=== PATIENT | female | born 1955 | race Caucasian/White ===

== ENCOUNTER 2017-03-04 14:45 | Outpatient (RCR) | payer OTHER | END 2017-03-31 | LOC: M PT 14:45 | DX: Z51.89 Encounter for other specified aftercare (principal); M75.32 Calcific tendinitis of left shoulder ==

== ENCOUNTER 2017-04-07 11:34 | Outpatient (RCR) | payer OTHER | END 2017-04-28 | LOC: M PT 11:34 | DX: Z51.89 Encounter for other specified aftercare (principal); M71.9 Bursopathy, unspecified ==

== ENCOUNTER → 2018-01-28 | Outpatient (REF) | payer OTHER ==
[2018-01-28 17:50] LABS: TOTAL PROTEIN 8.5 GM/DL (6.4-8.2)
[2018-02-01 11:36] LABS: ALBUMIN % 50.8 % (55.8-66.1)
[2018-02-01 11:37] LABS: ALBUMIN 4.32 GM/DL (3.29-5.55); ALPHA-1-GLOBULIN % 3.6 % (2.9-4.9); ALPHA-1-GLOBULINS 0.31 GM/DL (0.17-0.41); ALPHA-2-GLOBULINS 0.92 GM/DL (0.42-0.99); ALPHA-2-GLOBULINS % 10.8 % (7.1-11.8); BETA-1-GLOBULINS 0.57 GM/DL (0.28-0.60); BETA-1-GLOBULINS % 6.7 % (4.7-7.2); BETA-2-GLOBULINS 0.56 GM/DL (0.19-0.55); BETA-2-GLOBULINS % 6.6 % (3.2-6.5); GAMMA GLOBULIN % 21.5 % (11.1-18.8); GAMMA GLOBULINS 1.83 GM/DL (0.65-1.58)
== END ==
LOC: M LAB REF 16:10
DX: D89.0 Polyclonal hypergammaglobulinemia (principal)
CPT/HCPCS: 84165

== ENCOUNTER → 2018-11-22 | Outpatient (REF) | payer OTHER ==
[2018-11-23 17:40] LABS: TOTAL PROTEIN 8.1 GM/DL (6.4-8.2)
[2018-11-24 11:33] LABS: ALBUMIN 4.21 GM/DL (3.29-5.55); ALPHA-1-GLOBULIN % 3.6 % (2.9-4.9); ALPHA-1-GLOBULINS 0.29 GM/DL (0.17-0.41); ALPHA-2-GLOBULINS 0.81 GM/DL (0.42-0.99); BETA-1-GLOBULINS 0.55 GM/DL (0.28-0.60); BETA-1-GLOBULINS % 6.8 % (4.7-7.2); BETA-2-GLOBULINS 0.53 GM/DL (0.19-0.55); BETA-2-GLOBULINS % 6.5 % (3.2-6.5); GAMMA GLOBULIN % 21.1 % (11.1-18.8); GAMMA GLOBULINS 1.71 GM/DL (0.65-1.58)
== END ==
LOC: M LAB REF 17:07
PROVIDERS: ATTEND Internal Medicine
DX: D89.0 Polyclonal hypergammaglobulinemia (principal)

== ENCOUNTER → 2019-01-24 | Outpatient (REF) | payer OTHER ==
[2019-01-24 18:38] LABS: C REACTIVE PROTEIN QUANTITATIV 0.34 MG/DL (0.00-0.30); IRON (FE) 79 UG/DL (50-170); PERCENT SATURATION 24.2 % (13.2-45.0); PHOSPHORUS LEVEL 4.3 MG/DL (2.5-4.9); RHEUMATOID FACTOR QUANT < 10.0 IU/ML (<15.0); TOTAL IRON BINDING CAPACITY 327 UG/DL (250-450)
[2019-01-28 00:07] LABS: ANA (HEP2) Negative (.)
== END ==
LOC: M LAB REF 17:18
PROVIDERS: ATTEND Internal Medicine
DX: R79.82 Elevated C-reactive protein (CRP) (principal); M25.50 Pain in unspecified joint

== ENCOUNTER → 2019-03-14 | Outpatient (CLI) | payer OTHER | LOC: M PT 14:06 | PROVIDERS: ATTEND Orthopaedic Surgery | DX: Z01.818 Encounter for other preprocedural examination (principal); M16.12 Unilateral primary osteoarthritis, left hip ==

== ENCOUNTER 2019-04-25 13:45 | Outpatient (RCR) | payer OTHER | END 2019-04-29 | LOC: M PT 13:45 | PROVIDERS: ATTEND Orthopaedic Surgery | DX: Z47.1 Aftercare following joint replacement surgery (principal); Z96.642 Presence of left artificial hip joint ==

== ENCOUNTER 2019-05-12 08:36 | Outpatient (RCR) | payer OTHER | END 2019-05-30 | LOC: M PT 08:36 | PROVIDERS: ATTEND Orthopaedic Surgery | DX: Z47.89 Encounter for other orthopedic aftercare (principal); Z96.642 Presence of left artificial hip joint ==

== ENCOUNTER → 2019-09-29 | Outpatient (RCR) | payer OTHER | LOC: M PT 08-30 09:41 | PROVIDERS: ATTEND Orthopaedic Surgery Orthopaedic Surgery of the Spine | DX: M54.5 Low back pain (principal); M48.00 Spinal stenosis, site unspecified ==

== ENCOUNTER → 2020-01-30 | Outpatient (CLI) | payer SELFPAY | LOC: M LABSMTC 12:56 | PROVIDERS: ATTEND Pediatrics | DX: Z20.828 Contact with and (suspected) exposure to other viral communicable diseases (principal) ==

== ENCOUNTER → 2020-02-15 | Outpatient (CLI) | payer SELFPAY ==
[2020-02-15 16:42] LABS: FOLATE 18.3 NG/ML
[2020-02-23 03:07] LABS: CERULOPLASMIN 25.3 mg/dL (19.0-39.0); VITAMIN B1 LEVEL WHOLE BLOOD 147.6 nmol/L (66.5-200.0); VITAMIN B6,PYRIDOXAL PHOSPHATE 8.6 ug/L (2.0-32.8); VITAMIN E(ALPHA TOCOPHEROL) 14.5 mg/L (9.0-29.0); VITAMIN E(GAMMA TOCOPHEROL) 0.8 mg/L (0.5-4.9)
== END ==
LOC: M PLALAB 14:19
PROVIDERS: ATTEND Psychiatry & Neurology Neurology
DX: R20.2 Paresthesia of skin (principal); R53.1 Weakness; E61.0 Copper deficiency; E53.8 Deficiency of other specified B group vitamins

== ENCOUNTER → 2020-04-01 | Outpatient (REF) | payer OTHER ==
[2020-04-01 13:57] LABS: APPEARANCE, URINE CLEAR (CLEAR); BACTERIA, URINE AUTO NEGATIVE (NEGATIVE); BILIRUBIN, URINE AUTO NEGATIVE (NEGATIVE); BLOOD, URINE BLOOD NEGATIVE (NEGATIVE); COLOR, URINE YELLOW (YELLOW); GLUCOSE, URINE (UA) AUTO NEGATIVE (NEGATIVE); KETONE, URINE AUTO NEGATIVE (NEGATIVE); LEUKOCYTE ESTERASE, URINE AUTO TRACE (NEGATIVE); MUCUS, URINE SMALL (NEGATIVE); NITRITE, URINE AUTO POSITIVE (NEGATIVE); PROTEIN, URINE AUTO NEGATIVE (NEGATIVE); RBC, URINE AUTO 1 /HPF (0-3); SPECIFIC GRAVITY URINE AUTO 1.014 (1.002-1.035); SQUAMOUS EPITHELIAL CELL UR AU 0 /HPF (0-6); UROBILINOGEN, URINE AUTO 0.2 mg/dL (0.0-2.0); WBC, URINE AUTO 1 /HPF (0-3)
[2020-04-01 14:22] LABS: INR 1.03; PROTHROMBIN TIME 13.7 SECONDS (12.5-14.3)
[2020-04-01 14:23] LABS: PARTIAL THROMBOPLASTIN TIME 32.5 SECONDS (24.2-38.5)
[2020-04-01 14:46] LABS: PERCENT SATURATION 21.1 % (13.2-45.0)
== END ==
LOC: M LAB REF 12:32
PROVIDERS: ATTEND Internal Medicine
DX: Z01.818 Encounter for other preprocedural examination (principal); M25.559 Pain in unspecified hip; M16.11 Unilateral primary osteoarthritis, right hip

== ENCOUNTER → 2020-10-01 | Outpatient (CLI) | payer OTHER | LOC: M WHC 13:52 | PROVIDERS: ATTEND Internal Medicine | DX: M85.80 Other specified disorders of bone density and structure, unspecified site (principal) ==

== ENCOUNTER → 2020-10-22 | Outpatient (CLI) | payer OTHER ==
--- NOTE | 2020-10-23 10:05 | REPVR ---
PROCEDURE INFORMATION: Exam: MR Lumbar Spine Without Contrast Exam date and time: 10/22/2020 1:42 PM Age: 65 years old Clinical indication: Low back pain; Additional info: Lbp TECHNIQUE: Imaging protocol: Multiplanar magnetic resonance images of the lumbar spine without intravenous contrast. COMPARISON: No relevant prior studies available. FINDINGS: Vertebrae: There is 4 mm of grade 1 retrolisthesis of L2 with respect to L3. There is 5 mm of grade 1 anterolisthesis of L4 with respect to L5. Normal vertebral body alignment is otherwise preserved. Vertebral body heights are within normal limits. There is moderate to severe intervertebral disc space loss at L2/3 and L4/5. Spinal cord: The conus medullaris terminates at T12/L1. The patient has a congenitally narrowed spinal canal. L1-L2: There is shallow disc bulging. There is mild facet and ligamentous hypertrophy. The spinal canal and neural foramina are patent. L2-L3: There is diffuse disc bulging/uncovering related to listhesis. There is moderate facet and ligamentous hypertrophy. There is moderate canal stenosis. There is moderate right and mild left neural foraminal narrowing. L3-L4: There is diffuse disc bulging. There is moderate facet and ligamentous hypertrophy. There is moderate canal stenosis. There is moderate right and mild left neural foraminal narrowing. L4-L5: There is disc bulging/uncovering related to listhesis. There is severe facet and ligamentous hypertrophy. There is moderate canal stenosis. There is [id number] right and moderate to severe left neural foraminal narrowing. L5-S1: There is shallow disc bulging. There is moderate facet hypertrophy. There is mild right neural foraminal narrowing. Soft tissues: Unremarkable. IMPRESSION: Degenerative disc disease and spondylosis. Changes contribute to multilevel moderate acquired canal stenosis. There is multilevel neural foraminal narrowing, most pronounced at L4/5, where it is [id number] on the right and moderate to severe on the left. Electronically signed by: Tianna Perez On 10/23/2020 10:05:20 AM
== END ==
LOC: M PLAIMG 12:58
PROVIDERS: ATTEND Internal Medicine
DX: R93.7 Abnormal findings on diagnostic imaging of other parts of musculoskeletal system (principal); M54.5 Low back pain

== ENCOUNTER → 2020-11-19 | Outpatient (CLI) | payer OTHER ==
[2020-11-19 13:40] LABS: HEMATOCRIT 37.7 % (36.0-47.0); HEMOGLOBIN 12.6 g/dl (12.0-15.5); MEAN CORPUSCULAR HEMOGLOBIN 29.5 pg (27.0-33.0); MEAN CORPUSCULAR HGB CONC 33.4 g/dl (32.0-36.5); MEAN CORPUSCULAR VOLUME 88.3 fl (80.0-96.0); PLATELET COUNT, AUTOMATED 224 10^3/uL (150-450); RED BLOOD COUNT 4.27 10^6/uL (4.00-5.40); WHITE BLOOD COUNT 6.2 10^3/uL (4.0-10.0)
[2020-11-19 14:08] LABS: ALBUMIN 3.5 GM/DL (3.2-5.2); ALT/SGPT 35 U/L (12-78); BILIRUBIN,TOTAL 0.5 MG/DL (0.2-1.0); BLOOD UREA NITROGEN 17 MG/DL (7-18); C REACTIVE PROTEIN QUANTITATIV 0.39 MG/DL (0.00-0.30); CALCIUM LEVEL 8.9 MG/DL (8.8-10.2); CARBON DIOXIDE LEVEL 29 MEQ/L (21-32); CHLORIDE LEVEL 106 MEQ/L (98-107); CREATININE FOR GFR 0.94 MG/DL (0.55-1.30); GLOMERULAR FILTRATION RATE > 60.0 (>45); GLUCOSE, FASTING 179 MG/DL (70-100); POTASSIUM SERUM 4.7 MEQ/L (3.5-5.1); SODIUM LEVEL 139 MEQ/L (136-145); TOTAL PROTEIN 7.4 GM/DL (6.4-8.2)
[2020-11-19 14:17] LABS: ERYTHROCYTE SEDIMENTATION RATE 27 mm/hr (0-30)
== END ==
LOC: M PLALAB 10:32
PROVIDERS: ATTEND Physician Assistant
DX: M25.551 Pain in right hip (principal); M25.552 Pain in left hip

== ENCOUNTER → 2020-12-10 | Outpatient (REF) | payer OTHER ==
[2020-12-10 18:01] LABS: BACTERIA, URINE AUTO NEGATIVE (NEGATIVE); MUCUS, URINE SMALL (NEGATIVE); RBC, URINE AUTO 0 /HPF (0-3); SQUAMOUS EPITHELIAL CELL UR AU 0 /HPF (0-6); WBC, URINE AUTO 3 /HPF (0-3)
== END ==
LOC: M SMT 16:58
PROVIDERS: ATTEND Specialist
DX: N39.46 Mixed incontinence (principal)

== ENCOUNTER → 2020-12-23 | Outpatient (REF) | payer OTHER ==
[2020-12-23 17:21] LABS: APPEARANCE, URINE CLEAR (CLEAR); BACTERIA, URINE AUTO NEGATIVE (NEGATIVE); BILIRUBIN, URINE AUTO NEGATIVE (NEGATIVE); BLOOD, URINE BLOOD NEGATIVE (NEGATIVE); COLOR, URINE YELLOW (YELLOW); GLUCOSE, URINE (UA) AUTO 2+ mg/dL (NEGATIVE); KETONE, URINE AUTO NEGATIVE (NEGATIVE); LEUKOCYTE ESTERASE, URINE AUTO NEGATIVE (NEGATIVE); NITRITE, URINE AUTO NEGATIVE (NEGATIVE); PROTEIN, URINE AUTO NEGATIVE (NEGATIVE); RBC, URINE AUTO 0 /HPF (0-3); SPECIFIC GRAVITY URINE AUTO 1.019 (1.002-1.035); SQUAMOUS EPITHELIAL CELL UR AU 0 /HPF (0-6); UROBILINOGEN, URINE AUTO 0.2 mg/dL (0.0-2.0); WBC, URINE AUTO 1 /HPF (0-3)
== END ==
LOC: M LAB REF 16:46
PROVIDERS: ATTEND Internal Medicine
DX: Z01.818 Encounter for other preprocedural examination (principal)

== ENCOUNTER → 2021-03-17 | Outpatient (REF) | payer BC | LOC: M LAB REF 11:18 | PROVIDERS: ATTEND Internal Medicine | DX: R74.01 Elevation of levels of liver transaminase levels (principal) ==

== ENCOUNTER → 2021-04-02 | Outpatient (CLI) | payer MEDICARE, BC | LOC: M RAD 13:45 | PROVIDERS: ATTEND Internal Medicine | DX: I65.29 Occlusion and stenosis of unspecified carotid artery (principal) ==

== ENCOUNTER 2022-10-03 16:21 | Emergency (ER) | payer MEDICARE, BC ==
[~2022-10-03] VITALS: Ht 170.2 cm; Wt 83.2 kg
[2022-10-03] MEDS ORDERED: PARO40TA2 (16:36)
[2022-10-03] MEDS ORDERED: BUPR300T92 (16:36)
[2022-10-03] MEDS ORDERED: LANTINJ4 (16:36)
[2022-10-03] MEDS ORDERED: NOVOINJ3 (16:36)
[2022-10-03] MEDS ORDERED: ATOR1TAB21 (16:36)
[2022-10-03] MEDS ORDERED: TRUL0.5I (16:36)
[2022-10-03] MEDS ORDERED: METO1TAB32 (16:36)
[2022-10-03] MEDS ORDERED: FLEET ENEMA PR STA (18:39)
[2022-10-03] MEDS ORDERED: DIBUCAINE 1% OINTMENT 30GM TOP STA (20:02)
[2022-10-03 20:48] VITALS: BP 117/71; TEMP 97.8; O2SAT 98
== END 2022-10-03 20:38 | disposition home or self-care (01) ==
LOC: M ED 16:21
DX: K56.41 Fecal impaction (principal); E11.9 Type 2 diabetes mellitus without complications; I10 Essential (primary) hypertension; E78.5 Hyperlipidemia, unspecified; F10.10 Alcohol abuse, uncomplicated; Z79.4 Long term (current) use of insulin; Z79.02 Long term (current) use of antithrombotics/antiplatelets; Z79.899 Other long term (current) drug therapy

== ENCOUNTER → 2023-02-03 | Outpatient (REF) | payer MEDICARE, BC ==
[~2023-02-03] MED LIST: ATOR1TAB21; BUPR300T92; LANTINJ4; METO1TAB32; NOVOINJ3; PARO40TA2; TRUL0.5I
== END ==
LOC: M SFHCWAGY 17:47 → M SFHCDERM 17:47
PROVIDERS: ATTEND Nurse Practitioner Family
DX: N76.2 Acute vulvitis (principal)

== ENCOUNTER → 2023-08-20 | Outpatient (REF) | payer MEDICARE ==
[~2023-08-20] MED LIST changes: +BUPR-597; -BUPR300T92
== END ==
LOC: M LAB REF 12:17
PROVIDERS: ATTEND Physician Assistant
DX: B34.9 Viral infection, unspecified (principal)

== ENCOUNTER → 2023-09-22 | Outpatient (CLI) | payer MEDICARE | LOC: M CARPUL 08:51 | PROVIDERS: ATTEND Internal Medicine | DX: R01.0 Benign and innocent cardiac murmurs (principal) ==

== ENCOUNTER → 2023-09-22 | Outpatient (REF) | payer MEDICARE | LOC: M SFHCWAGY 15:01 | PROVIDERS: ATTEND Nurse Practitioner Family | DX: N73.9 Female pelvic inflammatory disease, unspecified (principal) ==

== ENCOUNTER → 2024-11-15 | Outpatient (REF) | payer MEDICARE ==
[~2024-11-15] MED LIST changes: -BUPR-597; +BUPR-766
== END ==
LOC: EEVIPCON 15:30 → M LAB REF 15:30
PROVIDERS: ATTEND Nurse Practitioner Family
DX: N73.9 Female pelvic inflammatory disease, unspecified (principal)

== ENCOUNTER → 2025-01-11 | Outpatient (REF) | payer MEDICARE ==
[2025-01-11 12:38] LABS: INR 1.14
[2025-01-11 14:35] LABS: APPEARANCE, URINE HAZY (CLEAR); BACTERIA, URINE AUTO 1+ (NEGATIVE); BILIRUBIN, URINE AUTO NEGATIVE (NEGATIVE); BLOOD, URINE BLOOD NEGATIVE (NEGATIVE); GLUCOSE, URINE (UA) AUTO NEGATIVE (NEGATIVE); KETONE, URINE AUTO NEGATIVE (NEGATIVE); LEUKOCYTE ESTERASE, URINE AUTO 1+ (NEGATIVE); MUCUS, URINE SMALL (NEGATIVE); NITRITE, URINE AUTO POSITIVE (NEGATIVE); PROTEIN, URINE AUTO NEGATIVE (NEGATIVE); RBC, URINE AUTO 1 /HPF (0-3); SPECIFIC GRAVITY URINE AUTO 1.012 (1.002-1.035); SQUAMOUS EPITHELIAL CELL UR AU 2 /HPF (0-6); UROBILINOGEN, URINE AUTO 0.2 mg/dL (0.0-2.0); WBC, URINE AUTO 19 /HPF (0-3)
== END ==
LOC: M LAB REF 12:15
PROVIDERS: ATTEND Internal Medicine
DX: Z01.818 Encounter for other preprocedural examination (principal)

== ENCOUNTER 2025-01-20 19:31 | Emergency (ER) | payer MEDICARE ==
[~2025-01-20] VITALS: Ht 170.2 cm; Wt 84.1 kg
[2025-01-20] MEDS: MORPHINE 4 MG/ML 1 ML VIAL IV ONE ×2 (20:37→23:46)
[2025-01-20 20:51] LABS: BASO # 0.0 10^3/uL (0.0-0.2); BASO % 0.4 % (0.0-1.0); EOS # 0.4 10^3/uL (0.0-0.5); EOS % 4.2 % (0.0-3.0); LYMPH # 1.4 10^3/uL (1.5-5.0); LYMPH % 16.6 % (24.0-44.0); MONO # 0.7 10^3/uL (0.0-0.8); MONO % 7.9 % (2.0-8.0); NEUTROPHILS # 5.9 10^3/uL (1.5-8.5); NEUTROPHILS % 70.3 % (36.0-66.0); PLATELET COUNT, AUTOMATED 318 10^3/uL (150-450)
[2025-01-20 21:15] LABS: CK-MB VALUE MASS < 1.0 NG/ML (<3.6)
[2025-01-20 21:18] LABS: ALT/SGPT 25 U/L (7.0-40); AST/SGOT 29 U/L (<34); CALCIUM LEVEL 8.7 MG/DL (8.3-10.6); CARBON DIOXIDE LEVEL 25 MMOL/L (20-31); CHLORIDE LEVEL 105 MMOL/L (98-107); CPK CREATINE PHOSPHOKINASE 72 U/L (34-145); CREATININE FOR GFR 1.00 MG/DL (0.55-1.30); GLOMERULAR FILTRATION RATE 60.2 (>39); INR 1.13; POTASSIUM SERUM 4.3 MMOL/L (3.5-5.1); SODIUM LEVEL 142 MMOL/L (136-145)
[2025-01-20 21:20] LABS: FREE T4 1.14 NG/DL (0.89-1.76)
[2025-01-20 23:31] VITALS: BP 141/65; TEMP 96.9
[2025-01-20 23:46] VITALS: O2SAT 100
== END 2025-01-21 00:08 | disposition short-term general hospital (02) ==
LOC: M ED 19:31
DX: M97.31XA Periprosthetic fracture around internal prosthetic right shoulder joint, initial encounter (principal); W01.198A Fall on same level from slipping, tripping and stumbling with subsequent striking against other object, initial encounter; I45.81 Long QT syndrome; I10 Essential (primary) hypertension; E11.9 Type 2 diabetes mellitus without complications; F32.A Depression, unspecified; M50.322 Other cervical disc degeneration at C5-C6 level; M50.323 Other cervical disc degeneration at C6-C7 level; M50.33 Other cervical disc degeneration, cervicothoracic region; F41.9 Anxiety disorder, unspecified; E78.5 Hyperlipidemia, unspecified; M19.90 Unspecified osteoarthritis, unspecified site; M48.00 Spinal stenosis, site unspecified; Y92.009 Unspecified place in unspecified non-institutional (private) residence as the place of occurrence of the external cause; Y93.89 Activity, other specified; Y99.9 Unspecified external cause status; Z96.611 Presence of right artificial shoulder joint; Z79.02 Long term (current) use of antithrombotics/antiplatelets; Z79.4 Long term (current) use of insulin; Z79.899 Other long term (current) drug therapy